=== PATIENT | male | born 1955 | race Caucasian/White ===

== ENCOUNTER 2016-10-30 07:23 | Emergency (ER) | payer OTHER ==
--- NOTE | ~2016-10-30 | CR72 ---
[facility]. [facility] A Service of [facility] & [facility] RADIOLOGY TEXT RESULTS PATIENT: NITHIN GONG LOCATION: SED : 53 UNIT #: [id number] AGE: [address]: Christoph Lutz DO SEX: M ORDER DR: [id number] [address] [address] [id number] E MR#: [id number] Acc #: [id number] NAME: NITHIN GONG : 1955 SEX: M STUDY DATE/TIME: 10/30/2016 8:05 UNIT: SED ROOM: STUDY DESCRIPTION: CR Chest Single View Portable Attending Physician: Christoph Lutz Ordering Physician: Christoph Lutz Primary Care Physician: Angelina Flannery Aprn MEDICAL IMAGING REPORT This report is preliminary unless electronic signature is present. EXAM Portable chest HISTORY Shortness of air and chest pain. Symptoms for 1 months. FINDINGS A portable view of the chest was obtained. The heart size is upper limits of normal. The vascularity is normal and the lungs are clear. The bones are unremarkable. IMPRESSION No active disease. Dictated by... Robin Acuna M.D. THIS IS AN ELECTRONICALLY VERIFIED REPORT Robin Acuna M.D. at 10/30/2016 4:07 PM Shahrzad TD: 10/30/2016 10:15 JOB #: [id number] MEDICAL IMAGING REPORT Page 1 of 1
--- NOTE | ~2016-10-30 | EKG ---
PATIENT: NITHIN GONG UNIT #: [id number] Ventricular Rate: 81 BPM Atrial Rate: 81 BPM P-R Interval: 212 ms QRS Duration: 86 ms Q-T Interval: 368 ms QTC Calculation(Bezet): 427 ms P [place]: 45 degrees Calculated R [place]: -8 degrees Calculated T [place]: 24 degrees Diagnosis Line: Sinus rhythm with 1st degree A-V block with Diagnosis Line: occasional Premature ventricular complexes Diagnosis Line: Low voltage QRS Diagnosis Line: Inferior infarct , age undetermined Diagnosis Line: Anteroseptal infarct , age undetermined Diagnosis Line: Abnormal ECG Diagnosis Line: No previous ECGs available Diagnosis Line: Confirmed by NERY MORENO MD ([id number]) on 10/30/2016 Diagnosis Line: 8:05:39 PM INTERPRETING MD: TIFFANIE PASTOR
[~2016-10-30 07:23] MED LIST: BAYER CHEWABLE81 MG PO; CLINDAMYCIN HC300 MG; CLOPIDOGREL75 MG PO; LIPITOR40 MG PO; METOPROLOL TAR25 MG PO; PRINIVIL10 MG PO; VITAMIN C500 M1 PO
[2016-10-30] MEDS ORDERED: LIPITOR40 MG PO (07:31)
[2016-10-30 08:07] LABS: POC - CKMB 1.4 ng/mL (0.0-7.9); POC - TROPONIN <0.05 ng/mL (<=0.05)
[2016-10-30 08:11] LABS: BASOPHIL# 0.1 X10e3 (0-0.3); BASOPHIL% 1.1 % (0-2.5); EOSINOPHIL# 0.4 X10e3 (0-0.7); EOSINOPHIL% 5.3 % (0.0-7.0); HEMATOCRIT 41.2 % (38.0-50.0); HEMOGLOBIN 14.2 gm/dL (13.0-16.0); LYMPHOCYTE# 1.5 X10e3 (1.0-3.5); LYMPHOCYTE% 23.2 % (17.0-45.0); MEAN CELL VOLUME 91.4 FL (83-96); MEAN CORPUSCULAR HEMOGLOBIN 31.4 PG (28-34); MEAN CORPUSCULAR HGB CONC 34.4 g/dL (30-36); MEAN PLATELET VOLUME 7.9 FL (6.5-11.5); MONOCYTE# 0.9 X10e3 (0-1.0); MONOCYTE% 13.2 % (3.0-12.0); NEUTROPHIL# 3.8 X10e3 (1.5-7.1); NEUTROPHIL% 57.2 % (40-75); PLATELET COUNT 269 X10e3 (140-420); RED BLOOD COUNT 4.51 X10e (3.90-5.60); RED CELL DISTRIBUTION WIDTH 12.6 % (11.0-15.5); WHITE BLOOD COUNT 6.6 X10e3 (4.0-10.5)
[2016-10-30 08:12] LABS: DIFF IND NO
[2016-10-30 08:13] LABS: INR 1.1; PROTHROMBIN TIME (PATIENT) 12.5 SECONDS (9.5-12.4)
[2016-10-30 08:21] LABS: PARTIAL THROMBOPLASTIN TIME 27.5 SECONDS (25.6-38.1)
[2016-10-30 08:22] LABS: ALBUMIN SERUM 3.8 g/dL (3.5-5.0); BILIRUBIN, DIRECT 0.1 mg/dL (0.0-0.2); BILIRUBIN,INDIRECT 0.2 mg/dL (0.0-0.9); BILIRUBIN,TOTAL 0.3 mg/dL (0.2-2.0); BUN/CREATININE RATIO 15.45; CALCIUM SERUM 9.1 mg/dL (8.4-10.2); CREATININE SERUM 1.1 mg/dL (0.6-1.4); GLOM FILT RATE Estimated 71.6 mL/min (>60); POTASSIUM 3.9 mmol/L (3.5-5.1); PROTEIN TOTAL SERUM 7.4 g/dL (6.0-8.3)
[2016-10-30 09:46] LABS: POC - CKMB 1.8 ng/mL (0.0-7.9); POC - TROPONIN <0.05 ng/mL (<=0.05)
== END 2016-10-30 15:10 ==
LOC: SED 07:23
PROVIDERS: Emergency Medicine
DX: R07.2 Precordial pain (principal); I11.0 Hypertensive heart disease with heart failure; I50.9 Heart failure, unspecified; I25.2 Old myocardial infarction; I25.10 Atherosclerotic heart disease of native coronary artery without angina pectoris; Z79.899 Other long term (current) drug therapy
CPT/HCPCS: 36415; 71010; 80048; 80076; 82553; 83880; 84484; 85025; 85610; 85730; 93005; 96374; 99285; J1940